=== PATIENT | female | born 1955 | race Asian ===

== ENCOUNTER → 2016-07-18 | Outpatient (CLI) | payer MEDICAID, OTHER ==
[~2016-07-18] MED LIST: CALCIUM PO; DIAZ2TAB3 PO; MECL-76 PO; MULT-516 PO
[2016-07-18 10:51] LABS: BLOOD UREA NITROGEN 13 mg/dL (7-18)
[2016-07-18 10:54] LABS: ASPARTATE AMINO TRANSFERASE 24 U/L (15-37)
== END | disposition home or self-care (01) ==
LOC: STAR 09:29
PROVIDERS: ATTEND Thoracic Surgery (Cardiothoracic Vascular Surgery)
DX: Z01.818 Encounter for other preprocedural examination (principal)
CPT/HCPCS: 36415; 80053; 85025; 93005

== ENCOUNTER 2016-07-24 09:35 | Observation (INO) | payer MEDICAID, OTHER ==
[~2016-07-24] VITALS: Ht 158.8 cm; Wt 50.7 kg
[~2016-07-24 09:35] MED LIST changes: +BUPIVACAINE/PF-EPI 0.5% 1:200K ONE
[2016-07-24] MEDS ORDERED: LACTATED RINGERS 1,000 ML IV SCH ×2 (11:19→15:39)
[2016-07-24 11:43] VITALS: BP 120/79
[2016-07-24] MEDS ORDERED: SCOPOLAMINE PATCH, 1.5MG PATCH.TD72 TD ONE ×2 (14:37)
[2016-07-24] MEDS ORDERED: GLYCOPYRROLATE 0.2MG/1ML ONE (14:50)
[2016-07-24] MEDS ORDERED: ROCURONIUM 10 MG/ML ONE (14:50)
[2016-07-24] MEDS ORDERED: NEOSTIGMINE 1 MG/ML, 10ML ONE (14:50)
[2016-07-24] MEDS ORDERED: ONDANSETRON 2MG/ML, 2ML ONE (14:50)
[2016-07-24] MEDS ORDERED: CEFAZOLIN 1,000 MG ONE (14:50)
[2016-07-24] MEDS ORDERED: DEXAMETHASONE 4 MG/ML, 1ML ONE (14:50)
[2016-07-24] MEDS ORDERED: FENTANYL PF 100 MCG/2ML IV PRN (15:30)
[2016-07-24] MEDS ORDERED: ONDANSETRON 2MG/ML, 2ML IVPush PRN ×2 (15:30→16:00)
[2016-07-24] MEDS ORDERED: MEPERIDINE/PF 25MG/0.5ML IVPush PRN (15:30)
[2016-07-24] MEDS ORDERED: ACETAMINOPHEN 325 MG TABLET PO PRN (15:30)
[2016-07-24] MEDS ORDERED: HYDROcodone/APAP 7.5-325MG/15ML UDC PO PRN (15:30)
[2016-07-24] MEDS ORDERED: PROMETHAZINE 25 MG/ML, 1ML IV PRN (15:30)
[2016-07-24] MEDS ORDERED: MIDAZOLAM 1 MG/ML, 2ML IV PRN (15:30)
[2016-07-24] MEDS ORDERED: OXYcodone 5 MG/5 ML ORAL.SOL UDC PO PRN (15:30)
[2016-07-24] MEDS ORDERED: MEPERIDINE/PF 25MG/0.5ML ONE (16:08)
[2016-07-24] MEDS ORDERED: HYDROmorphone 1 MG/ML, 1ML ONE (16:31)
[2016-07-24] MEDS: HYDROmorphone 1 MG/ML, 1ML IV PRN ×5 (16:34→23:08)
[2016-07-24] MEDS ORDERED: ENOXAPARIN 40 MG/0.4 ML SQ SCH (19:00)
[2016-07-24 19:45] VITALS: BP 136/84
[2016-07-24] MEDS: DIAZEPAM 2 MG TABLET PO SCH (20:40)
[2016-07-24] MEDS: MECLIZINE CHEWABLE 25 MG TAB PO SCH (20:41)
[2016-07-25 01:46] VITALS: BP 105/61
[2016-07-25] MEDS: MECLIZINE CHEWABLE 25 MG TAB PO SCH (03:01)
[2016-07-25] MEDS: DIAZEPAM 2 MG TABLET PO SCH ×2 (05:42→12:16)
[2016-07-25] MEDS: HYDROcodone/APAP 5/325 TABLET PO PRN ×2 (05:42→08:09)
[2016-07-25 07:26] VITALS: BP 120/83
[2016-07-25] MEDS ORDERED: MECLIZINE 12.5 MG TABLET PO SCH (07:57)
[2016-07-25 13:34] VITALS: BP 91/58
[2016-07-25] MEDS ORDERED: HYDR-3138 PO (14:53)
== END 2016-07-25 16:00 | disposition home or self-care (01) ==
LOC: INTOOBSV 10:45 → ORIP 10:45 → 3NW 18:26
PROVIDERS: ADMIT Thoracic Surgery (Cardiothoracic Vascular Surgery); ATTEND Thoracic Surgery (Cardiothoracic Vascular Surgery)
DX: D38.1 Neoplasm of uncertain behavior of trachea, bronchus and lung (principal); R91.8 Other nonspecific abnormal finding of lung field; Z85.118 Personal history of other malignant neoplasm of bronchus and lung; Z90.11 Acquired absence of right breast and nipple
CPT/HCPCS: 32666; 32667; 71010; 88309; 96372; 96374; 96376; C1729; G0378; J0690; J1100; J1170; J1650; J2175; J2250; J2405; J2710; J3010; J7120; J3490